=== PATIENT | female | born 1950 | race Caucasian/White ===

== ENCOUNTER 2018-05-04 08:00 | Outpatient (CLI) | payer MEDICARE ==
[2018-05-04] MEDS ORDERED: VALS40TA2 PO (10:03)
[2018-05-04] MEDS ORDERED: METO25TA91 PO (10:03)
[2018-05-04] MEDS ORDERED: ROSU10TA PO (10:03)
[2018-05-04] MEDS ORDERED: DULO60CA7 PO (10:03)
[2018-05-04] MEDS ORDERED: RANI300T PO (10:03)
[2018-05-04 10:46] LABS: CHLORIDE 107 mmol/L (98-107)
[2018-05-04 10:52] LABS: ALANINE AMINOTRANSFERASE 31 U/L (12-78); ALBUMIN 3.8 g/dL (3.4-5.0); ALKALINE PHOSPHATASE 94 U/L (45-117); ANION GAP 8 mmol/L (5-15); BILIRUBIN,TOTAL 0.9 mg/dL (0.2-1.0); CALCIUM 9.7 mg/dL (8.5-10.1); TOTAL PROTEIN 7.1 g/dL (6.4-8.2)
== END 2018-05-04 23:59 | disposition home or self-care (01) ==
LOC: STAR 08:00
PROVIDERS: ATTEND Surgery
DX: K44.9 Diaphragmatic hernia without obstruction or gangrene (principal); Z88.0 Allergy status to penicillin; Z88.6 Allergy status to analgesic agent; Z88.1 Allergy status to other antibiotic agents; Z88.2 Allergy status to sulfonamides
CPT/HCPCS: 36415; 80053; 93005

== ENCOUNTER → 2018-05-07 | Outpatient (CLI) | payer MEDICARE ==
[~2018-05-07] MED LIST: DULO60CA7 PO; METO25TA91 PO; RANI300T PO; ROSU10TA PO; VALS40TA2 PO
== END | disposition home or self-care (01) ==
LOC: RAD 09:11
PROVIDERS: ATTEND Surgery
DX: R93.2 Abnormal findings on diagnostic imaging of liver and biliary tract (principal); Z88.0 Allergy status to penicillin; Z88.5 Allergy status to narcotic agent
CPT/HCPCS: 78227; A9537

== ENCOUNTER 2018-05-08 11:57 | Observation (INO) | payer MEDICARE ==
[2018-05-04 10:29] VITALS: BP 142/93
[~2018-05-08] VITALS: Ht 172.7 cm; Wt 89.2 kg
[2018-05-08] MEDS ORDERED: LACTATED RINGERS 1,000 ML IV SCH (12:29)
[2018-05-08] MEDS ORDERED: BUPIVACAINE/PF-EPI 0.5% 1:200K ONE (13:31)
[2018-05-08] MEDS ORDERED: MIDAZOLAM 1 MG/ML, 2ML ONE (13:49)
[2018-05-08] MEDS ORDERED: FENTANYL PF 250 MCG/5ML ONE ×2 (13:49→15:22)
[2018-05-08] MEDS ORDERED: ROCURONIUM 10MG/ML,5ML ONE (13:50)
[2018-05-08] MEDS ORDERED: PROPOFOL 10 MG/ML, 20ML ONE (13:50)
[2018-05-08] MEDS ORDERED: SUCCINYLCHOLINE 20 MG/ML, 10ML ONE (13:50)
[2018-05-08] MEDS ORDERED: KETOROLAC 30 MG/1 ML ONE (13:55)
[2018-05-08] MEDS ORDERED: ONDANSETRON 2MG/ML, 2ML ONE (13:55)
[2018-05-08] MEDS ORDERED: CEFAZOLIN 1,000 MG ONE (13:55)
[2018-05-08] MEDS ORDERED: NEOSTIGMINE 1 MG/ML, 10ML ONE (13:55)
[2018-05-08] MEDS ORDERED: EPHEDRINE 50 MG/ML, 1ML ONE (13:55)
[2018-05-08] MEDS ORDERED: DEXAMETHASONE 4 MG/ML, 1ML ONE (13:55)
[2018-05-08] MEDS ORDERED: ONDANSETRON 2MG/ML, 2ML IV PRN (14:30)
[2018-05-08] MEDS ORDERED: EPHEDRINE 50 MG/ML, 1ML IVPush PRN (14:30)
[2018-05-08] MEDS ORDERED: MIDAZOLAM 1 MG/ML, 2ML IV PRN (14:30)
[2018-05-08] MEDS ORDERED: LABETALOL 5MG/ML, 20ML IV PRN (14:30)
[2018-05-08] MEDS ORDERED: ONDANSETRON ODT 8 MG PO PRN (14:30)
[2018-05-08] MEDS ORDERED: ACETAMINOPHEN 325 MG TABLET PO PRN (14:30)
[2018-05-08] MEDS ORDERED: MEPERIDINE/PF 25MG/0.5ML IVPush PRN (14:30)
[2018-05-08] MEDS ORDERED: DIAZEPAM 5 MG/ML, 2ML IVPush PRN (14:30)
[2018-05-08] MEDS ORDERED: OXYcodone 5 MG/5 ML ORAL.SOL UDC PO PRN ×3 (14:30→19:00)
[2018-05-08] MEDS ORDERED: PROMETHAZINE 12.5 MG SUPP PR PRN (14:30)
[2018-05-08] MEDS ORDERED: ALBUTEROL SULFATE 2.5 MG/3 ML NPPB PRN (14:30)
[2018-05-08] MEDS ORDERED: HALOPERIDOL 5 MG/ML IV PRN (14:30)
[2018-05-08] MEDS ORDERED: hydrALAzine 20 MG/ML, 1ML IV PRN (14:30)
[2018-05-08] MEDS ORDERED: FENTANYL PF 100 MCG/2ML IV PRN (14:30)
[2018-05-08] MEDS ORDERED: PROMETHAZINE 25 MG/ML, 1ML IV PRN (14:30)
[2018-05-08] MEDS ORDERED: HYDROmorphone 2 MG/ML, 1ML ONE (17:13)
[2018-05-08] MEDS: HYDROmorphone 2 MG/ML, 1ML IVPush PRN ×3 (17:19→17:58)
[2018-05-08] MEDS ORDERED: FENTANYL PF 100 MCG/2ML ONE (17:27)
[2018-05-08] MEDS ORDERED: HYDROmorphone 2 MG/ML, 1ML IV PRN (19:00)
[2018-05-08] MEDS ORDERED: KETOROLAC 30 MG/1 ML IV PRN (19:00)
[2018-05-08] MEDS ORDERED: DIPHENHYDRAMINE 50 MG/ML, 1ML IVPush PRN (19:00)
[2018-05-08] MEDS: ACETAMINOPHEN 500 MG TABLET PO SCH (19:00)
[2018-05-08] MEDS ORDERED: ONDANSETRON 2MG/ML, 2ML IVPush PRN (19:00)
[2018-05-08] MEDS ORDERED: ATORVASTATIN 20 MG TABLET PO SCH (21:00)
[2018-05-08] MEDS: METOPROLOL SUCCINATE 25 MG TAB.ER.24H PO SCH (21:43)
[2018-05-08] MEDS: LACTATED RINGERS 1,000 ML IV SCH (21:45)
[2018-05-08 22:57] VITALS: BP 141/72
[2018-05-09] MEDS: ACETAMINOPHEN 500 MG TABLET PO SCH ×2 (00:19→07:25)
[2018-05-09 03:39] VITALS: BP 115/71
[2018-05-09] MEDS ORDERED: FAMOTIDINE 40 MG TABLET PO SCH (07:30)
[2018-05-09 07:34] VITALS: BP 112/72
[2018-05-09] MEDS: METOPROLOL SUCCINATE 25 MG TAB.ER.24H PO SCH (08:46)
[2018-05-09] MEDS ORDERED: VALSARTAN 80 MG TABLET PO SCH (09:00)
[2018-05-09] MEDS ORDERED: DULOXETINE 30 MG CAPSULE.DR PO SCH (09:00)
[2018-05-09] MEDS: LACTATED RINGERS 1,000 ML IV SCH (09:30)
[2018-05-09] MEDS ORDERED: OXYC5TAB3 PO (12:07)
[2018-05-09] MEDS ORDERED: TRAM50TA2 PO (12:09)
[2018-05-09] MEDS ORDERED: ACET-1600 PO (12:33)
== END 2018-05-09 12:55 | disposition home or self-care (01) ==
LOC: OUT 11:57 → 4NOR 18:20 → OUT 18:25 → 4NOR 18:25 → DCLOUNGE 05-09 12:30
PROVIDERS: ADMIT Surgery; ATTEND Surgery
DX: K44.9 Diaphragmatic hernia without obstruction or gangrene (principal); K21.9 Gastro-esophageal reflux disease without esophagitis; K81.1 Chronic cholecystitis; K82.4 Cholesterolosis of gallbladder
CPT/HCPCS: 43281; 47562; 88304; 96374; G0378; J0330; J0690; J1100; J1170; J1885; J2250; J2405; J2704; J2710; J3010; J7120; Q4116; S2900

== ENCOUNTER → 2020-06-05 | Outpatient (CLI) | payer MEDICARE ==
[~2020-06-05] MED LIST changes: +ACET-1600 PO; +OXYC5TAB98 PO; -ROSU10TA PO; +ROSU10TA2 PO; +SODIUM CHLORIDE 0.9% 1,000 ML IV SCH; +TRAM50TA2 PO
== END | disposition home or self-care (01) ==
LOC: RAD 10:23
PROVIDERS: ATTEND Internal Medicine Gastroenterology
DX: K31.84 Gastroparesis (principal); T18.2XXA Foreign body in stomach, initial encounter; X58.XXXA Exposure to other specified factors, initial encounter; Y92.89 Other specified places as the place of occurrence of the external cause; Y93.89 Activity, other specified; Y99.8 Other external cause status
CPT/HCPCS: 78264; A9541

== ENCOUNTER → 2020-10-16 | Outpatient (CLI) | payer MEDICARE ==
[~2020-10-16] MED LIST changes: -SODIUM CHLORIDE 0.9% 1,000 ML IV SCH
== END | disposition home or self-care (01) ==
LOC: RAD 11:24
PROVIDERS: ATTEND Nurse Practitioner Primary Care
DX: R79.9 Abnormal finding of blood chemistry, unspecified (principal)
CPT/HCPCS: 78070; A9500